=== PATIENT | female | born 1980 | race Caucasian/White ===

== ENCOUNTER → 2016-10-25 | Day surgery (SDC) | payer OTHER ==
[~2016-10-25] MED LIST: FLONASE ALLERG9.9 ML; PANTOPRAZOLE SO40 MG PO; VITAMIN D10000 UNIT PO; ZYRTEC10 M1 PO
--- NOTE | ~2016-10-25 | OR ---
Unit #: [id number] #: [id number] Patient: MARCO BANSAL [id number] [address] [address] [id number] MR#: [id number] NAME: MARCO BANSAL ROOM: Date of Procedure: 10/25/2016 Admission Date: 10/25/2016 Surgeon: Sancho Helms M.D. : 1980 Attending Physician: Sancho Helms M.D. OPERATIVE REPORT PROCEDURE PERFORMED Esophagogastroduodenoscopy with biopsy. INDICATIONS FOR PROCEDURE The patient with dysphagia, undergoing evaluation with upper endoscopy. MEDICATIONS Monitored anesthesia. POSTOPERATIVE FINDINGS 1. Possibly eosinophilic esophagitis. Multiple biopsies taken in midesophagus. 2. Mild gastritis. Biopsies taken. 3. Normal duodenum and distal duodenum. PLAN Continue PPI therapy. Follow up on pathology report. DESCRIPTION OF PROCEDURE The patient was explained of the procedure, risks, and benefits along with risks and benefits of anesthesia. She was brought to the endoscopy room. Propofol anesthesia was given. Bite block was placed. The scope was passed down the mouth into the esophagus, stomach, duodenum, and distal duodenum. Findings as described. Biopsies taken. Gently, I pulled it out of the patient's mouth. She tolerated it well. Dictated by... Rosa Isela Atkinson/mago TD: 11/09/2016 00:46 JOB #: [id number] Unit #: [id number] #: [id number] Patient: MARCO BANSAL OPERATIVE REPORT Page 1 of 1 X Sancho Helms MD X PROCEDURE OPERATIVE NOTE
== END | disposition home or self-care (01) ==
LOC: COPS 12:14 → EDBD 14:30
DX: K29.50 Unspecified chronic gastritis without bleeding (principal); R13.10 Dysphagia, unspecified; D72.1 Eosinophilia; K21.9 Gastro-esophageal reflux disease without esophagitis; F17.200 Nicotine dependence, unspecified, uncomplicated
CPT/HCPCS: 88305; 88312